=== PATIENT | male | born 1990 | race Caucasian/White ===

== ENCOUNTER 2021-02-13 20:59 | Emergency (ER) | payer OTHER, SELFPAY ==
[2021-02-13 21:01] VITALS: BP 153/95; PULSE 96; RESP 16; TEMP 37.1; O2SAT 100; BMI 25.0
[2021-02-13 21:14] VITALS: BMI 25.0
--- NOTE | 2021-02-13 21:17 | CT_ITS ---
PROCEDURE INFORMATION: Exam: CT Abdomen And Pelvis With Contrast Exam date and time: 02/13/2021 9:17 PM Age: 30 years old Clinical indication: Vomiting and other: Diarrhea; Abdominal pain; Localized; Patient HX: Lower abd pain with v/d TECHNIQUE: Imaging protocol: Computed tomography of the abdomen and pelvis with contrast. Radiation optimization: All CT scans at this facility use at least one of these dose optimization techniques: automated exposure control; mA and/or kV adjustment per patient size (includes targeted exams where dose is matched to clinical indication); or iterative reconstruction. Contrast material: ISOVUE; Contrast volume: 75 ml; Contrast route: IV; COMPARISON: No relevant prior studies available. FINDINGS: Liver: Normal. No mass. Gallbladder and bile ducts: Normal. No calcified stones. No ductal dilation. Pancreas: Normal. No ductal dilation. Spleen: Normal. No splenomegaly. Adrenal glands: Normal. No mass. Kidneys and ureters: Normal. No hydronephrosis. Stomach and bowel: Unremarkable. No obstruction. No mucosal thickening. Appendix: No evidence of appendicitis. Intraperitoneal space: Unremarkable. No free air. No significant fluid collection. Vasculature: Unremarkable. No abdominal aortic aneurysm. Lymph nodes: Unremarkable. No enlarged lymph nodes. Urinary bladder: Unremarkable as visualized. Reproductive: Unremarkable as visualized. Bones/joints: Unremarkable. No acute fracture. Soft tissues: Unremarkable. IMPRESSION: No acute findings.
[2021-02-13 21:38] LABS: Basophils % 0.4 % (0.1-2.0); Eosinophils # 0.1 K/mm3 (0.0-0.4); Eosinophils % 0.6 % (0.1-12.0); Hematocrit 46.8 % (42.0-52.0); Hemoglobin 15.8 g/dL (14.1-18.0); Lymphocytes # 0.6 K/mm3 (0.7-4.5); Lymphocytes % 7.6 % (10-50); Mean Corpuscular HGB Conc 33.8 g/dL (31.8-35.4); Mean Corpuscular Hemoglobin 30.4 pg (27.0-31.2); Mean Platelet Volume 7.9 fl (7.4-10.4); Monocytes # 0.5 K/mm3 (0.1-1.0); Monocytes % 6.2 % (1.7-9.3); Neutrophils # 6.2 K/mm3 (1.8-7.8); Neutrophils % 85.2 % (37.0-80.0); Platelet Count 195 K/mm3 (142-424); Red Cell Distribution Width 13.3 % (11.5-17.5); White Blood Count 7.2 K/mm3 (4.8-10.8)
[2021-02-13 21:43] LABS: MANUAL DIFFERENTIAL MANUAL DIFFERENTIAL (MANUAL DIFF)
[2021-02-13 21:46] LABS: Alanine Aminotransferase 36 U/L (12-78); Albumin Level 4.6 g/dl (3.5-5.0); Albumin/Globulin Ratio 1.5 (1.1-1.8); Alkaline Phosphatase 92 U/L (38-126); Amylase 52 U/L (30-110); Anion Gap 13.5 mEq/L (5-15); Aspartate Amino Transferase 29 U/L (17-59); Bilirubin,Total 1.2 mg/dl (0.2-1.3); Blood Urea Nitrogen 16 mg/dl (9-20); Calcium 8.8 mg/dl (8.4-10.2); Carbon Dioxide 25 mmol/L (22.0-30.0); Chloride 99 mmol/L (98-107); Creatinine Clearance Estimated 126 mL/min (50-200); Estimated Glomerular Filt Rate 87 ml/min (>60); GFR (African American) 105 ML/MIN (>60); Glucose 115 mg/dl (74-100); Lipase 191 U/L (23-300); Magnesium 1.6 mg/dl (1.6-2.3); Phosphorous 3.3 mg/dl (2.5-4.5); Potassium 3.5 mmoL/L (3.5-5.1); Sodium 134 mmol/L (136-145); Total Protein,Serum 7.6 g/dl (6.3-8.2)
--- NOTE | 2021-02-13 21:46 | [facility].EDNVD ---
ED Disposition Clinical Impression: Gastroenteritis Disposition: Home, Self-Care Condition on Discharge: Good Instructions: DI for Acute Abdominal Pain Additional Instructions: fluids and see pcp for follow up and return if needed and op diarrhea panel Referrals: Raul Rivero APRN [Primary Care Provider] - - Critical Care Critical Care Time: No Attestation: On 02/13/21, the high probability of a clinically significant, sudden or life threatening deterioration of the following system(s) required my full and direct attention, intervention and personal management. The time I documented below is in addition to time spent performing reported procedures but includes the following listed in this critical care notation. Medical Decision Making - Medical Records Medical records reviewed: Yes: I reviewed the patient's medical records. - Kike Inquiry Pt receiving controlled substance: No Vital Signs: 02/13/21 21:01 02/13/21 22:30 Temperature 98.7 F Temperature Source Oral Pulse Rate 87 Pulse Rate [Left Radial] 96 H Respiratory Rate 16 Blood Pressure 138/80 Blood Pressure [Right Arm] 153/95 H Blood Pressure Mean [Right Arm] 114 Blood Pressure Source [Right Arm] Automatic Cuff Blood Pressure Position [Right Arm] Sitting 02 Sat by Pulse Oximetry 100 97 Oxygen Delivery Method Room Air - Lab Data Lab results reviewed: Yes: I reviewed the patient's lab results. Lab Results 02/13/21 21:19: WBC 7.2, RBC 5.20, Hgb 15.8, Hct 46.8, MCV 90.0, MCH 30.4, MCHC 33.8, RDW 13.3, Plt Count 195, MPV 7.9, Neut % (Auto) 85.2 H, Lymph % (Auto) 7.6 L, Snyder % (Auto) 6.2, Eos % (Auto) 0.6, Baso % (Auto) 0.4, Neut # (Auto) 6.2, Lymph # (Auto) 0.6 L, Snyder # (Auto) 0.5, Eos # (Auto) 0.1, Baso # (Auto) 0.0, Total Counted 100, Neutrophils % (Manual) 83 H, Band Neutrophils % 2.0, Lymphocytes % (Manual) 7 L, Monocytes % (Manual) 7, Eosinophils % (Manual) 1, Platelet Estimate Normal, RBC Morphology Normal 02/13/21 21:19: Sodium 134 L, Potassium 3.5, Chloride 99, Carbon Dioxide 25, Anion Gap 13.5, BUN 16, Creatinine 1.00, Estimated Creat Clear 126, Estimated GFR 87, Est GFR ( Amer) 105, Glucose 115 H, Calcium 8.8, Total Bilirubin 1.2, AST 29, ALT 36, Alkaline Phosphatase 92, Total Protein 7.6, Albumin 4.6, Globulin 3.0, Albumin/Globulin Ratio 1.5 02/13/21 21:19: Phosphorus 3.3, Magnesium 1.6, Amylase 52 02/13/21 21:19: Lipase 191 Result diagrams: 02/13/21 21:19 02/13/21 21:19 Orders (Tests/Meds): ED MEDICATIONS Generic Name Dose Route Start Last Admin Trade Name Freq PRN Reason Stop Dose Admin Lactated Ringer's 1,000 mls @ 999 mls/hr 02/13/21 21:15 02/13/21 21:41 Lactated Ringer's 1000 Ml Bag IV 02/13/21 22:15 999 mls/hr .[id number] BRICE Administration Discontinued Medications Generic Name Dose Route Start Last Admin Trade Name Freq PRN Reason Stop Dose Admin Iopamidol 75 ml 02/13/21 21:50 02/13/21 21:51 Iopamidol-370 (76%);100ml Bottle IV 02/13/21 21:51 75 ml ONCE ONE Administration Ketorolac Tromethamine 30 mg 02/13/21 21:22 02/13/21 21:41 Ketorolac 30mg/Ml Vial IV 02/13/21 21:23 30 mg ONCE ONE Administration Ondansetron HCl 4 mg 02/13/21 21:22 02/13/21 21:41 Ondansetron 4mg/2ml Vial IV 02/13/21 21:23 4 mg ONCE ONE Administration Sodium Chloride 10 ml 02/13/21 21:50 02/13/21 21:51 Sodium Chloride 0.9% 10ml Syr (Rad Only) IV 02/13/21 21:51 10 ml ONCE ONE Administration ORDERS Category Date Time Status C-Reactive Protein Stat Lab 02/13/21 23:09 Ordered Diarrhea 6-11 Panel, Cdiff PCR Stat Lab 02/13/21 21:15 Ordered ESR [Erythrocyte Sedimentation Rate] Stat Lab 02/13/21 23:09 Ordered Full Resp Panel w/COVID ([facility]) Routine Lab 02/13/21 21:50 Received Urinalysis and Microscopic Stat Lab 02/13/21 21:15 Ordered - CT Data CT Scan: Abdomen, Pelvis Time Received: 23:[address] Reviewed: Yes: I have viewed the radiologist's interpretation P
[2021-02-13 21:54] LABS: Eosinophils % 1 % (0-3); Lymphocytes % 7 % (10-50); Monocytes % 7 % (2-9); Neutrophils % 83 % (42-76); Platelet Estimate Normal; RBC Morphology Normal; Total Cells Counted 100
[2021-02-13 21:59] LABS: Adenovirus,PCR Not Detected (NotDetected); Bordetella Pertussis Not Detected (NotDetected); Chlamydophila Pneumoniae, PCR Not Detected (NotDetected); Coronavirus 19, PCR Not Detected (NotDetected); Coronavirus 229E Not Detected (NotDetected); Coronavirus NL63 Not Detected (NotDetected); Coronavirus OC43 Not Detected (NotDetected); Coronovirus HKU1,PCR Not Detected (NotDetected); Human Metapneumovirus Not Detected (NotDetected); Influenza A, PCR Not Detected (NotDetected); Influenza AH1, 2009 Not Detected (NotDetected); Influenza AH1, PCR Not Detected (NotDetected); Influenza AH3,PCR Not Detected (NotDetected); Influenza B, PCR Not Detected (NotDetected); Mycoplasma Pneumoniae, PCR Not Detected (NotDetected); Parainfluenza 1, PCR Not Detected (NotDetected); Parainfluenza 2, PCR Not Detected (NotDetected); Parainfluenza 3, PCR Not Detected (NotDetected); Parainfluenza 4, PCR Not Detected (NotDetected); Respiratory Syncytial Virus Not Detected (NotDetected); Rhinovirus/Enterovirus Not Detected (NotDetected)
[2021-02-13 22:00] VITALS: BP 151/85; PULSE 81; RESP 16; O2SAT 98
[2021-02-13 22:30] VITALS: BP 138/80; PULSE 87; O2SAT 97
[2021-02-13 23:15] VITALS: BP 138/83; PULSE 80; RESP 16; TEMP 36.8; O2SAT 98
== END 2021-02-13 23:26 | disposition home or self-care (01) ==
PROVIDERS: Emergency Provider Emergency Medicine; PCP Nurse Practitioner Family
DX: K52.9 Noninfective gastroenteritis and colitis, unspecified (principal)
CPT/HCPCS: 74177; 80053; 82150; 83690; 83735; 84100; 85007; 85025; 87581; 87633; 87798; 96365; 96375; 99284; J2405; Q9967